=== PATIENT | female | born 1990 | race Caucasian/White ===

== ENCOUNTER 2022-12-13 20:13 | Emergency (ER) | payer MEDICAID ==
[~2022-12-13] VITALS: Ht 167.6 cm; Wt 66.4 kg
[2022-12-13 20:20] VITALS: BP 118/82; PULSE 80; RESP 18; TEMP 98.6; O2SAT 100
[2022-12-13 20:58] LABS: BASOPHILS % 0.7 % (0.0-2.0); HEMATOCRIT. 37.2 % (36.0-48.0); HEMOGLOBIN. 12.3 g/dL (12.0-16.0); LYMPHOCYTES % 20.7 % (20.0-50.0); MEAN CORPUSCULAR HEMOGLOBIN 29.3 pg (28.0-32.0); MEAN CORPUSCULAR VOLUME 88.7 fL (81.0-99.0); MONOCYTES % 7.5 % (2.0-8.0); NEUTROPHILS % 69.1 % (40.0-76.0); PLATELET 257 x1000/uL (130-400); RED CELL DISTRIBUTION WIDTH 13.4 % (11.6-14.6); WHITE BLOOD COUNT 14.1 x1000/uL (4.5-11.0)
[2022-12-13 21:08] LABS: CHLORIDE 108 mEq/L (98-107); INDEX HEMOLYSI 1 (1-3); INDEX ICTERIC 1 (1-4); INDEX LIPEMIC 1 (1-3); POTASSIUM 3.8 mEq/L (3.5-5.1); SODIUM 139 mEq/L (136-145)
[2022-12-13 21:17] LABS: ALANINE AMINOTRANSFERASE 18 IU/L (13-61); ALBUMIN 3.7 g/dL (3.4-5.0); ASPARTATE AMINOTRANSFERASE 17 IU/L (15-37); BILIRUBIN TOTAL 0.5 mg/dL (0.1-1.0); CARBON DIOXIDE 25 mEq/L (21-32); CREATININE 0.6 mg/dL (0.6-1.3); GLUCOSE 101 mg/dL (70-105); PROTEIN TOTAL 8.1 g/dL (6.0-8.3); UREA NITROGEN BLOOD 13 mg/dL (7-21)
[2022-12-13 22:59] LABS: CLARITY URINE CLEAR (CLEAR); COLOR URINE YELLOW (YELLOW); GLUCOSE URINE NEGATIVE (NEGATIVE); KETONES URINE NEGATIVE (NEGATIVE); LEUKOCYTE ESTERASE URINE NEGATIVE (NEGATIVE); NITRITE URINE NEGATIVE (NEGATIVE); OCCULT BLOOD URINE NEGATIVE (NEGATIVE); PROTEIN URINE NEGATIVE (NEGATIVE); SPECIFIC GRAVITY URINE 1.025 (1.005-1.030)
== END 2022-12-14 01:00 | disposition left against medical advice (07) ==
LOC: ER 20:13
DX: Z53.21 Procedure and treatment not carried out due to patient leaving prior to being seen by health care provider (principal); I49.9 Cardiac arrhythmia, unspecified
CPT/HCPCS: 36415; 80053; 81003; 81025; 85025; 93005; 99281

== ENCOUNTER 2023-04-28 10:11 | Emergency (ER) | payer MEDICAID ==
[~2023-04-28] VITALS: Ht 162.6 cm; Wt 65.0 kg
[2023-04-28 10:15] VITALS: BP 106/67; RESP 20; O2SAT 98
[2023-04-28 10:19] VITALS: PULSE 95
[2023-04-28 11:30] VITALS: TEMP 98.5
[2023-04-28] MEDS: SUMATRIPTAN SUCCINATE 6MG/0.5ML VIAL SUBCUT ONE (11:30)
[2023-04-28] MEDS: ACETAMINOPHEN 325MG TABLET PO ONE (11:30)
[2023-04-28] MEDS: METOCLOPRAMIDE HCL 10MG TABLET PO ONE (11:30)
[2023-04-28] MEDS ORDERED: SODIUM CHLORIDE 0.9% 1,000 ML IV ONE (12:15)
== END 2023-04-28 13:49 | disposition left against medical advice (07) ==
LOC: ER 10:11
DX: R51.9 Headache, unspecified (principal)
CPT/HCPCS: 99283; 81025; 96372; J8597; J3030; J7030

== ENCOUNTER 2023-09-23 19:42 | Emergency (ER) | payer OTHER ==
[~2023-09-23] VITALS: Ht 160 cm; Wt 66.0 kg
[2023-09-23 20:08] VITALS: TEMP 98.2; O2SAT 100
[2023-09-23 20:38] LABS: BASOPHILS % 0.7 % (0.0-2.0); EOSINOPHILS % 2.7 % (0.0-5.0); LYMPHOCYTES % 28.4 % (20.0-50.0); MEAN CORPUSCULAR HEMOGLOBIN 29.5 pg (28.0-32.0); MEAN CORPUSCULAR HGB CONC 33.3 g/dL (31.0-37.0); MEAN CORPUSCULAR VOLUME 88.7 fL (81.0-99.0); MEAN PLATELET VOLUME 8.2 fl (7.4-10.4); MONOCYTES % 7.8 % (2.0-8.0); NEUTROPHILS % 60.4 % (40.0-76.0); PLATELET 271 x1000/uL (130-400); RED BLOOD CELL COUNT 4.06 mill/uL (4.2-5.4); RED CELL DISTRIBUTION WIDTH 13.5 % (11.6-14.6); WHITE BLOOD COUNT 11.8 x1000/uL (4.5-11.0)
[2023-09-23 20:42] LABS: CHLORIDE 105 mEq/L (98-107); SODIUM 137 mEq/L (136-145)
[2023-09-23 20:43] LABS: CALCIUM 9.3 mg/dL (8.7-10.4); CARBON DIOXIDE 26 mEq/L (21-32)
[2023-09-23 20:48] LABS: CREATININE 0.6 mg/dL (0.6-1.0); GLUCOSE 91 mg/dL (70-105); UREA NITROGEN BLOOD 11 mg/dL (9-23)
[2023-09-23 20:50] LABS: HCG SCREEN NEGATIVE
[2023-09-23 23:12] LABS: CLARITY URINE CLEAR (CLEAR); COLOR URINE YELLOW (YELLOW); GLUCOSE URINE NEGATIVE (NEGATIVE); KETONES URINE NEGATIVE (NEGATIVE); LEUKOCYTE ESTERASE URINE NEGATIVE (NEGATIVE); NITRITE URINE NEGATIVE (NEGATIVE); OCCULT BLOOD URINE NEGATIVE (NEGATIVE); PROTEIN URINE NEGATIVE (NEGATIVE); SPECIFIC GRAVITY URINE 1.009 (1.005-1.030); UROBILINOGEN URINE 0.2 E.U./dL (0.2-1.0)
[2023-09-23] MEDS ORDERED: IBUP-2029 MT (23:38)
[2023-09-24 00:09] VITALS: BP 106/56; PULSE 61; RESP 16
== END 2023-09-24 00:09 | disposition home or self-care (01) ==
LOC: ER 19:42
DX: R10.2 Pelvic and perineal pain (principal); Z98.890 Other specified postprocedural states; Z88.8 Allergy status to other drugs, medicaments and biological substances
CPT/HCPCS: 36415; 76856; 80048; 81003; 84703; 85025; 99284